=== PATIENT | female | born 2000 | race American Indian/Alaskan Native ===

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

== ENCOUNTER 2021-06-30 21:44 | Emergency (ER) | payer MEDICAID ==
[2021-06-30] MEDS ORDERED: ACETAMINOPHEN 500 MG TAB ONE (22:05)
[2021-06-30] MEDS ORDERED: ACETAMINOPHEN 500 MG TAB PO ONE (22:10)
[2021-06-30] MEDS ORDERED: dexAMETHasone 4 MG/ML VIAL PO ONE (22:23)
[2021-06-30] MEDS ORDERED: PENICILLIN G BENZATHINE 1.2 MILLION UNIT/2 ML INJ IM STA (22:23)
--- NOTE | 2021-06-30 22:35 | Emergency Department Report ---
ED ENT HPI - General Chief complaint: Fever Stated complaint: BACK PAIN, HEAD THROBBING, SORE THROAT,NUMB LEGS Time Seen by Provider: 06/30/21 22:19 Source: patient Mode of arrival: Ambulatory Limitations: No Limitations - History of Present Illness MD complaint: sore throat -: Gradual, days(s) (2) Location: throat Severity: mild, moderate Quality: aching, dull Consistency: constant Worsens with: swallowing, eating Associated Symptoms: fever, pain with swallowing, sore throat, other - Related Data Home Medications Medication Instructions Recorded Confirmed Last Taken 147/Iron/Folic Acid 147 mg PO DAILY 10/09/20 10/26/20 10/09/20 23:45 Previous Rx's Medication Instructions Recorded Last Taken Type Lidocaine Viscous 2% 5 ml MM TID PRN #120 udc 06/30/21 Unknown Rx Allergies Allergy/AdvReac Type Severity Reaction Status Date / Time No Known Allergies Allergy Unverified 08/27/13 04:20 ED Dental HPI - General Chief complaint: Fever Stated complaint: BACK PAIN, HEAD THROBBING, SORE THROAT,NUMB LEGS Time Seen by Provider: 06/30/21 22:19 Source: patient Mode of arrival: Ambulatory Limitations: No Limitations - Related Data Home Medications Medication Instructions Recorded Confirmed Last Taken 147/Iron/Folic Acid 147 mg PO DAILY 10/09/20 10/26/20 10/09/20 23:45 Previous Rx's Medication Instructions Recorded Last Taken Type Lidocaine Viscous 2% 5 ml MM TID PRN #120 udc 06/30/21 Unknown Rx Allergies Allergy/AdvReac Type Severity Reaction Status Date / Time No Known Allergies Allergy Unverified 08/27/13 04:20 ED Review of Systems ROS: Stated complaint: BACK PAIN, HEAD THROBBING, SORE THROAT,NUMB LEGS Other details as noted in HPI Comment: All other systems reviewed and negative ED Past Medical Hx - Past Medical History Previous Medical History?: No Hx Hypertension: No Hx Congestive Heart Failure: No Hx Diabetes: No Hx Deep Vein Thrombosis: No Hx Renal Disease: No Hx Sickle Cell Disease: No Hx Seizures: No Hx Asthma: No Hx HIV: No - Surgical History Past Surgical History?: No Additional Surgical History: denies - Social History Smoking Status: Never Smoker - Medications Home Medications: Home Medications Medication Instructions Recorded Confirmed Last Taken Type 147/Iron/Folic Acid 147 mg PO DAILY 10/09/20 10/26/20 10/09/20 23:45 History Lidocaine Viscous 2% 5 ml MM TID PRN #120 udc 06/30/21 Unknown Rx ED Physical Exam - General Limitations: No Limitations General appearance: alert, in no apparent distress - Head Head exam: Present: atraumatic, normocephalic - Eye Eye exam: Present: normal appearance - ENT ENT exam: Present: mucous membranes moist, other (Pharynx is erythematous with swollen tonsils scant area of exudate. Tongue and uvula are midline airways patent normal voice) - Neck Neck exam: Present: normal inspection, lymphadenopathy - Respiratory Respiratory exam: Present: normal lung sounds bilaterally. Absent: respiratory distress - Cardiovascular Cardiovascular Exam: Present: regular rate, normal rhythm. Absent: systolic murmur, diastolic murmur, rubs, gallop - GI/Abdominal GI/Abdominal exam: Present: soft, normal bowel sounds - Extremities Exam Extremities exam: Present: normal inspection - Back Exam Back exam: Present: normal inspection - Neurological Exam Neurological exam: Present: alert, oriented X3 - Psychiatric Psychiatric exam: Present: normal affect, normal mood - Skin Skin exam: Present: warm, dry, intact, normal color. Absent: rash ED Medical Decision Making - Medical Decision Making 20-year-old female with no history of any compromised nontoxic appearance patient is euvolemic with no trismus no airway compromise unable to tolerate p.o. given history and examination low suspicion for this presentation being caused by peritonsillar abscess, Anshu, bacterial tracheitis, acute HIV, epiglottitis, retropharyngeal abscess. Critical care attestation.: If time is entered above; I have spent that time in minutes in the direct care of this critically ill patient, excluding procedure time. ED Disposition Clinical Impression: Pharyngitis Disposition: HOME / SELF CARE / HOMELESS Is pt being admited?: No Does the pt Need Aspirin: No Condition: Stable Instructions: Pharyngitis, Tonsillitis Prescriptions: Lidocaine Viscous 2% 5 ml MM TID PRN #120 udc PRN Reason: sore throat Referrals: [facility] [Provider Group] - 3-5 Days
== END 2021-06-30 23:01 | disposition home or self-care (01) ==
LOC: ED 21:44
DX: J02.9 Acute pharyngitis, unspecified (principal)
CPT/HCPCS: 96372; 99282; J0561; J1100